=== PATIENT | male | born 1935 | race Caucasian/White ===

== ENCOUNTER 2017-01-06 22:49 | Emergency (ER) | payer MEDICARE, BC ==
[~2017-01-06] VITALS: Ht 170.2 cm; Wt 73.5 kg
[~2017-01-06 22:49] MED LIST: ASPI-524 PO; FURO-152 PO; METO-302 PO; ROSU10TA PO; SPIR25TA PO
--- NOTE | 2017-01-06 23:07 | NUR ---
DR ANTHONY AT BEDSIDE FOR MSE.
[2017-01-06] MEDS ORDERED: AZEL137S7 BNOSTRILS (23:25)
[2017-01-06] MEDS ORDERED: BUDE10.2 INH (23:25)
[2017-01-06] MEDS ORDERED: TAMS0.4C34 PO (23:25)
[2017-01-06] MEDS ORDERED: GUAI600T53 PO (23:25)
[2017-01-06] MEDS ORDERED: ACET-73 PO (23:25)
[2017-01-06] MEDS ORDERED: MONT10TA22 PO (23:25)
[2017-01-06] MEDS ORDERED: ACLI400A2 IH (23:25)
[2017-01-06] MEDS ORDERED: FINA5TAB3 PO (23:25)
[2017-01-06] MEDS ORDERED: TRAZ-144 PO (23:25)
[2017-01-06] MEDS ORDERED: DILT240C88 PO (23:25)
[2017-01-06] MEDS ORDERED: ERGO500014 PO (23:25)
[2017-01-06] MEDS ORDERED: ASCO500T10 PO (23:25)
[2017-01-06] MEDS ORDERED: POLY17PO4 PO (23:25)
[2017-01-06] MEDS ORDERED: ALBU18HF2 INH (23:25)
[2017-01-06] MEDS ORDERED: ROSU20TA PO (23:25)
[2017-01-06] MEDS ORDERED: OXYM15MI4 BNOSTRILS (23:25)
[2017-01-06] MEDS ORDERED: OMEP40CA37 PO (23:25)
[2017-01-06] MEDS ORDERED: RANI150T12 PO (23:25)
[2017-01-06] MEDS ORDERED: COLC0.6C3 PO (23:25)
[2017-01-06] MEDS ORDERED: DIGO125T PO (23:25)
[2017-01-06] MEDS ORDERED: FOLI1TAB16 PO (23:25)
--- NOTE | 2017-01-07 00:19 | NUR ---
Patient discharged to home in stable conditon. Written and verbal after care instructions given. Patient verbalizes understanding of instructions. PATIENT LEFT VIA WHEELCHAIR AND CAREGIVER.
[2017-01-07 00:21] VITALS: BP 135/89
== END 2017-01-07 00:22 | disposition home or self-care (01) ==
LOC: ER 22:50
DX: S89.92XA Unspecified injury of left lower leg, initial encounter (principal); I50.9 Heart failure, unspecified; I48.91 Unspecified atrial fibrillation; K21.9 Gastro-esophageal reflux disease without esophagitis; Z95.1 Presence of aortocoronary bypass graft; M10.9 Gout, unspecified; F03.90 Unspecified dementia, unspecified severity, without behavioral disturbance, psychotic disturbance, mood disturbance, and anxiety; Z96.652 Presence of left artificial knee joint; X58.XXXA Exposure to other specified factors, initial encounter; Y93.89 Activity, other specified; Y92.9 Unspecified place or not applicable; Y99.9 Unspecified external cause status; Z79.82 Long term (current) use of aspirin
CPT/HCPCS: 29505; 73564; 99284; A4663

== ENCOUNTER 2018-01-26 23:25 | Inpatient (IN) | payer MEDICARE, BC ==
[~2018-01-26] VITALS: Ht 167.6 cm; Wt 78.2 kg
[~2018-01-26 23:25] MED LIST changes: +ACET-73 PO; +ACLI400A2 IH; +ALBU18HF2 INH; +ASCO500T10 PO; -ASPI-524 PO; +AZEL137S7 BNOSTRILS; +BUDE10.2 INH; +COLC0.6C3 PO; +DIGO125T PO; +DILT240C88 PO; +ERGO500014 PO; +FINA5TAB3 PO; +FOLI1TAB16 PO; -FURO-152 PO; +GUAI600T53 PO; -METO-302 PO; +MONT10TA22 PO; +OMEP40CA37 PO; +OXYM15MI4 BNOSTRILS; +POLY17PO4 PO; +RANI150T43 PO; -ROSU10TA PO; +ROSU20TA PO; -SPIR25TA PO; +TAMS0.4C34 PO; +TRAZ-182 PO
[2018-01-26] MEDS ORDERED: MULT-1196 PO (23:46)
[2018-01-26] MEDS ORDERED: ROSU40TA PO (23:46)
[2018-01-26] MEDS ORDERED: FINA5TAB3 PO (23:46)
[2018-01-26] MEDS ORDERED: APIX2.5T PO (23:46)
[2018-01-27 00:16] LABS: BASOPHILS % (AUTO) 0.3 % (0.0-2.0); CARBON DIOXIDE 24 mmol/L (21-32); CHLORIDE 106 mmol/L (98-107); CREATININE 1.2 mg/dL (0.6-1.3); EOSINOPHILS # (AUTO) 0.1 K/uL (0.0-0.7); EOSINOPHILS % (AUTO) 0.8 % (0.0-7.0); GLUCOSE 197 mg/dL (74-106); HEMATOCRIT 41.2 % (36.7-47.1); LYMPHOCYTES # (AUTO) 1.4 K/uL (20.0-40.0); LYMPHOCYTES % (AUTO) 13.4 % (20.5-51.5); MEAN CORPUSCULAR HGB CONC 34 g/dL (32.5-36.3); MEAN CORPUSCULAR VOLUME 88.6 fL (73.0-96.2); MONOCYTES # (AUTO) 0.8 K/uL (2.0-10.0); MONOCYTES % (AUTO) 7.4 % (0.0-11.0); NEUTROPHILS # (AUTO) 8.1 K/uL (1.8-8.9); NEUTROPHILS % (AUTO) 78.1 % (38.5-71.5); PLATELET COUNT (AUTO) 155 K/uL (152-348); POTASSIUM 3.7 mmol/L (3.5-5.1); RED BLOOD CELL COUNT(AUTO) 4.65 MIL/uL (4.06-5.63); UREA NITROGEN, BLOOD 26 mg/dL (7-18); WHITE BLOOD COUNT (AUTO) 10.4 K/uL (3.6-10.2)
[2018-01-27 00:22] LABS: ALANINE AMINOTRANSFERASE 42 U/L (16-63); ALKALINE PHOSPHATASE 84 U/L (50-136); ASPARTATE AMINOTRANSFERASE 27 U/L (15-37); BILIRUBIN,DIRECT 0.1 mg/dL (0.0-0.2); BILIRUBIN,TOTAL 0.4 mg/dL (0.2-1.0); LIPASE 268 U/L (73-393); TOTAL PROTEIN, SERUM 7.1 g/dL (6.4-8.2)
[2018-01-27] MEDS ORDERED: ONDANSETRON 4 MG/2 ML VIAL IV PRN (01:15)
[2018-01-27] MEDS ORDERED: ERGOCALCIFEROL 50,000 UNIT CAPSULE PO SCH ×2 (01:15→08:30)
[2018-01-27] MEDS ORDERED: GUAIFENESIN LA 600 MG TABLET.SA PO PRN (01:15)
[2018-01-27] MEDS ORDERED: HYDROCODONE/APAP 5-325MG TABLET PO PRN (01:15)
[2018-01-27] MEDS ORDERED: ACETAMINOPHEN 325 MG TABLET PO PRN (01:15)
[2018-01-27] MEDS ORDERED: MAGNESIUM HYDROXIDE 30 ML LIQUID UDC PO PRN (01:15)
[2018-01-27] MEDS ORDERED: Z GUARD REMEDY PASTE 57 GM TUBE TOP PRN (01:15)
[2018-01-27 01:22] LABS: *BILIRUBIN,URIN NEGATIVE (NEGATIVE); *BLOOD, URINE NEGATIVE (NEGATIVE); *CLARITY,URINE CLEAR (CLEAR); *COLOR,URINE YELLOW (YELLOW); *KETONES,URINE NEGATIVE (NEGATIVE); *PROTEIN,URINE NEGATIVE (NEGATIVE); *UROBILINOGEN,URINE 0.2 E.U./dl (NORMAL); LEUKOCYTE ESTERASE ,URINE TRACE (NEGATIVE); NITRITE, URINE NEGATIVE (NEGATIVE); UGLUCOSE NEGATIVE (NEGATIVE)
[2018-01-27 01:30] LABS: BACTERIA,URINE FEW /HPF (NONE SEEN); RBC,URINE 0-3 /HPF (0-3); SQUAMOUS EPITHELIAL CELL,UR FEW /HPF (NONE SEEN)
[2018-01-27] MEDS ORDERED: ALBUTEROL SULFATE 2.5 MG/3 ML NEBU NEB PRN (02:00)
[2018-01-27 02:05] VITALS: BP 145/79
[2018-01-27 04:00] VITALS: BP 137/75
[2018-01-27 06:40] LABS: BASOPHILS % (AUTO) 0.4 % (0.0-2.0); EOSINOPHILS # (AUTO) 0.1 K/uL (0.0-0.7); EOSINOPHILS % (AUTO) 0.7 % (0.0-7.0); HEMATOCRIT 40.9 % (36.7-47.1); HEMOGLOBIN 13.9 g/dL (12.5-16.3); LYMPHOCYTES # (AUTO) 1.7 K/uL (20.0-40.0); LYMPHOCYTES % (AUTO) 20.1 % (20.5-51.5); MEAN CORPUSCULAR HEMOGLOBIN 30.4 uug (23.8-33.4); MEAN CORPUSCULAR HGB CONC 34 g/dL (32.5-36.3); MEAN CORPUSCULAR VOLUME 89.3 fL (73.0-96.2); MONOCYTES # (AUTO) 0.8 K/uL (2.0-10.0); NEUTROPHILS # (AUTO) 5.8 K/uL (1.8-8.9); NEUTROPHILS % (AUTO) 69.8 % (38.5-71.5); PLATELET COUNT (AUTO) 141 K/uL (152-348); RED BLOOD CELL COUNT(AUTO) 4.58 MIL/uL (4.06-5.63); WHITE BLOOD COUNT (AUTO) 8.3 K/uL (3.6-10.2)
[2018-01-27 07:10] LABS: ALANINE AMINOTRANSFERASE 39 U/L (16-63); ALKALINE PHOSPHATASE 77 U/L (50-136); ASPARTATE AMINOTRANSFERASE 23 U/L (15-37); BILIRUBIN,TOTAL 0.4 mg/dL (0.2-1.0); CARBON DIOXIDE 25 mmol/L (21-32); CHLORIDE 108 mmol/L (98-107); GLUCOSE 109 mg/dL (74-106); LIPASE 225 U/L (73-393); PHOSPHOROUS 4.3 mg/dL (2.5-4.9); TOTAL PROTEIN, SERUM 7.1 g/dL (6.4-8.2); UREA NITROGEN, BLOOD 21 mg/dL (7-18)
[2018-01-27 07:32] LABS: THYROID STIMULATING HORMONE 3.024 mIU/mL (0.358-3.740)
[2018-01-27] MEDS ORDERED: Medication Not On Formulary EA (Rosuvastatin Calcium (Crestor) 40 MG) PO SCH (09:00)
[2018-01-27] MEDS ORDERED: Medication Not On Formulary EA (Apixaban (Eliquis) 2.5 MG) PO SCH (09:00)
[2018-01-27] MEDS ORDERED: TAMSULOSIN HCL 0.4 MG CAP.SR.24H PO SCH (09:00)
[2018-01-27] MEDS ORDERED: MULTIVITAMINS,THERAPEUTIC TABLET PO SCH (09:00)
[2018-01-27] MEDS ORDERED: Medication Not On Formulary EA (Multivit-Min/FA/Lycopen/Lutein (Centrum Silver Men Table PO SCH (09:00)
[2018-01-27] MEDS ORDERED: ASCORBIC ACID 500 MG TABLET PO SCH (09:00)
[2018-01-27] MEDS ORDERED: NITR100C11 PO (09:07)
== END 2018-01-27 09:23 | disposition left against medical advice (07) | DRG 308 ==
LOC: ER 23:28 → TELE 01-27 01:37
PROVIDERS: ADMIT Internal Medicine; ATTEND Nurse Practitioner Acute Care
DX: I48.91 Unspecified atrial fibrillation (principal); G93.41 Metabolic encephalopathy; N39.0 Urinary tract infection, site not specified; E44.1 Mild protein-calorie malnutrition; E86.0 Dehydration; N40.1 Benign prostatic hyperplasia with lower urinary tract symptoms; R55 Syncope and collapse; K59.00 Constipation, unspecified; Z68.27 Body mass index [BMI] 27.0-27.9, adult; R79.89 Other specified abnormal findings of blood chemistry; E78.5 Hyperlipidemia, unspecified; Z96.652 Presence of left artificial knee joint; Z79.01 Long term (current) use of anticoagulants; F41.9 Anxiety disorder, unspecified; I70.0 Atherosclerosis of aorta; M10.9 Gout, unspecified; R35.0 Frequency of micturition; Z98.2 Presence of cerebrospinal fluid drainage device; K21.9 Gastro-esophageal reflux disease without esophagitis; Z79.51 Long term (current) use of inhaled steroids; Z79.899 Other long term (current) drug therapy; Z95.1 Presence of aortocoronary bypass graft; R33.9 Retention of urine, unspecified
CPT/HCPCS: 36415; 70030-TC; 71045; 83690; 83735; 84100; 84443; 85025; 85730; 87086; 93005; 93880; A4663